=== PATIENT | female | born 1990 | race Two or more races ===

== ENCOUNTER 2017-06-01 01:22 | Emergency (ER) | payer MEDICAID ==
[2017-06-01 01:40] VITALS: BP 116/73
--- NOTE | 2017-06-01 02:05 | EDM.PDOC ---
ED HPI GENERAL MEDICAL PROBLEM - General Stated Complaint: 14 WEEKS AND SPOTTING Time Seen by Provider: 06/01/17 01:34 Source of Information: Reports: Patient History Limitations: Reports: No Limitations - History of Present Illness INITIAL COMMENTS - FREE TEXT/NARRATIVE: 27 y.o.w.f AB1 came to the ed after she noticed vaginal spotting after sexual intercourse. No dizziness, lightheadedness N/V/D or any other acute medical issues at this time. Onset: Today Onset Date: 05/31/17 Onset Time: 10:00 Duration: Hour(s):, Intermittent Location: Reports: Pelvis Quality: Reports: Other (no pain) Severity: Mild Improves with: Reports: Rest (pelvic rest) Worsens with: Reports: Other (jumping) - Related Data Allergies Allergy/AdvReac Type Severity Reaction Status Date / Time adhesive Allergy Rash Verified 06/01/17 01:33 Home Meds: Home Meds Vit #108/Iron/FA [ One Tablet] 1 tab PO DAILY 06/01/17 [History ] Social & Family History - Tobacco Use Smoking Status *Q: Never Smoker - Alcohol Use Days Per Week of Alcohol Use: 1 - Recreational Drug Use Recreational Drug Use: No ED ROS GENERAL - Review of Systems Review Of Systems: See Below Constitutional: Reports: No Symptoms HEENT: Reports: No Symptoms Respiratory: Reports: No Symptoms Cardiovascular: Reports: No Symptoms Endocrine: Reports: No Symptoms GI/Abdominal: Reports: No Symptoms : Reports: No Symptoms Musculoskeletal: Reports: No Symptoms Skin: Reports: No Symptoms Neurological: Reports: No Symptoms Psychiatric: Reports: No Symptoms Hematologic/Lymphatic: Reports: No Symptoms Immunologic: Reports: No Symptoms ED EXAM - Physical Exam Exam: See Below Exam Limited By: No Limitations General Appearance: Alert, WD/WN, No Apparent Distress Eye Exam: Bilateral Eye: Normal Inspection Ears: Normal External Exam Nose: Normal Inspection Throat/Mouth: Normal Inspection Head: Atraumatic, Normocephalic Neck: Normal Inspection, Supple, Non-Tender, Full Range of Motion Respiratory/Chest: No Respiratory Distress Cardiovascular: Normal Peripheral Pulses, Regular Rate, Rhythm GI/Abdominal Exam: Non-Tender, Other Rectal Exam: Deferred (Female) Exam: Other (pt refused pelvic exam) Back Exam: Normal Inspection Extremities: Normal Inspection Neurological: Alert, Oriented, CN II-XII Intact, Normal Cognition, Normal Gait Psychiatric: Normal Affect, Normal Mood Skin Exam: Warm, Dry, Intact, Normal Color, No Rash Lymphatic: No Adenopathy Course - Vital Signs Text/Narrative:: 27 y.o.w.f AB1 came to the ed after she noticed vaginal spotting after sexual intercourse. No dizziness, lightheadedness N/V/D or any other acute medical issues at this time. LNMP February 232016 EDOD 11/30/2017 FHT 160 bpm PE: WNWD WF in NAD. Refused pelvic exam. FHT 160 Impression: Threatening Plan: D/C with instructions Last Recorded V/S: Last Vital Signs Temp 36.6 C 06/01/17 01:34 Pulse 85 06/01/17 01:34 Resp 16 06/01/17 01:34 BP 116/73 06/01/17 01:34 Pulse Ox 100 06/01/17 01:34 Departure - Departure Time of Disposition: 02:02 Disposition: Home, Self-Care 01 Condition: Good Clinical Impression: Threatened miscarriage - Discharge Information Referrals: Earl Rouse MD [Primary Care Provider] - Forms: ED Department Discharge Additional Instructions: Pelvic rest till bleeding stops entirely. Please follow up with your [employer] [facility] please come back if symptoms worsen acutely
== END 2017-06-01 02:10 | disposition home or self-care (01) ==
LOC: FB.ED 01:22
DX: O20.0 Threatened abortion (principal); Z3A.14 14 weeks gestation of pregnancy; Z91.048 Other nonmedicinal substance allergy status; Z79.899 Other long term (current) drug therapy
CPT/HCPCS: 99283

== ENCOUNTER 2024-07-30 20:46 | Emergency (ER) | payer BC, MEDICAID ==
[2024-07-30 21:07] VITALS: BP 135/77; PULSE 88
== END 2024-07-30 21:45 | disposition home or self-care (01) ==
LOC: FB.ED 20:46
DX: L03.116 Cellulitis of left lower limb (principal); Z91.048 Other nonmedicinal substance allergy status; Z79.899 Other long term (current) drug therapy
CPT/HCPCS: 99283